=== PATIENT | male | born 1955 | race Caucasian/White ===

== ENCOUNTER 2022-01-17 08:54 | Outpatient (CLI) | payer MEDICARE, OTHER ==
[2022-01-17] MEDS ORDERED: iohexol 350MG/ML 100ml bottle IV ONE (09:13)
== END 2022-01-17 23:59 | disposition home or self-care (01) ==
LOC: 64 CT 08:54
PROVIDERS: ATTEND Internal Medicine Interventional Cardiology
DX: R07.9 Chest pain, unspecified (principal)
CPT/HCPCS: 71275; Q9967